=== PATIENT | female | born 1960 | race Caucasian/White ===

== ENCOUNTER 2020-03-02 10:38 | Emergency (ER) | payer OTHER ==
[~2020-03-02] VITALS: Ht 157.5 cm; Wt 59.0 kg
[2020-03-02] MEDS ORDERED: NEURONTIN 400M400 M2 PO (10:58)
[2020-03-02] MEDS ORDERED: CELECOXIB100 MG PO (10:58)
[2020-03-02] MEDS ORDERED: LITHIUM CARBON300 M3 PO (10:59)
[2020-03-02] MEDS ORDERED: LITHIUM CARBON150 MG PO (10:59)
[2020-03-02] MEDS ORDERED: ALLERGY RELIEF25 MG PO (11:00)
[2020-03-02 11:49] LABS: ABSOLUTE EOSINOPHILS 0.1 thou/uL (0.0-0.7); ABSOLUTE LYMPHOCYTES 2.1 thou/uL (0.8-5.3); ABSOLUTE MONOCYTES 0.5 thou/uL (0.0-1.2); ABSOLUTE NEUTROPHILS 3.8 thou/uL (1.6-8.1); BASOPHILS 0.6 %; EOSINOPHILS 1.9 %; HEMATOCRIT 40.7 % (37.0-47.0); LYMPHOCYTES 32.6 %; MCH 34.3 pg (26.0-34.0); MCHC 34.5 g/dL (28.0-37.0); MCV 99.6 fL (80.0-100.0); MPV 7.7 fl. (7.2-11.1); NUCLEATED RBCS 0 /100WBC; PLATELET COUNT* 282 thou/uL (150-400); POLYS 57.9 %; RBC 4.09 mil/uL (4.20-5.00); RDW-CV 13.6 % (10.5-14.5); WBC 6.5 thou/uL (4.0-11.0)
[2020-03-02 11:54] LABS: CALCIUM 8.4 mg/dL (8.5-10.1); POTASSIUM 4.4 mmol/L (3.5-5.1)
[2020-03-02 11:58] LABS: ALBUMIN 3.5 g/dL (3.4-5.0); TOTAL BILIRUBIN 0.3 mg/dL (<0.1-1.0); TOTAL PROTEIN 6.9 g/dL (6.4-8.2)
[2020-03-02 12:18] LABS: URINE BILIRUBIN NEGATIVE (Negative); URINE BLOOD NEGATIVE (Negative); URINE CLARITY CLEAR; URINE COLOR YELLOW; URINE GLUCOSE-RANDOM NEGATIVE (Negative); URINE KETONES NEGATIVE (Negative); URINE LEUKOCYTES-REFLEX NEGATIVE (Negative); URINE NITRITE-REFLEX NEGATIVE (Negative); URINE PROTEIN NEGATIVE (Negative); URINE SPECIFIC GRAVITY <= 1.005 (1.005-1.030); URINE UROBILINOGEN 0.2 E.U./dl (0.2-1.0)
[2020-03-02] MEDS ORDERED: ZOFRAN ODT4 MG PO (17:19)
[2020-03-02] MEDS ORDERED: CYCLOBENZAPRINE5 MG PO (17:19)
[2020-03-02] MEDS ORDERED: BENTYL 20 MG TA20 M1 PO (17:19)
[2020-03-02 17:29] VITALS: BP 147/96
== END 2020-03-02 17:30 | disposition home or self-care (01) ==
LOC: M.ERS 10:38
PROVIDERS: Personal Emergency Response Attendant
DX: A08.4 Viral intestinal infection, unspecified (principal); Z20.828 Contact with and (suspected) exposure to other viral communicable diseases; J44.9 Chronic obstructive pulmonary disease, unspecified; M79.7 Fibromyalgia; F17.200 Nicotine dependence, unspecified, uncomplicated; Z79.899 Other long term (current) drug therapy; Z90.710 Acquired absence of both cervix and uterus; Z98.890 Other specified postprocedural states